=== PATIENT | female | born 1950 | race Caucasian/White ===

== ENCOUNTER 2017-10-06 20:40 | Emergency (ER) | payer OTHER, MEDICAID ==
[2017-10-06 22:17] LABS: ADD UMIC YES; UR ASCORBIC ACID NEGATIVE (NEGATIVE); UR BACTERIA MANY /HPF (NONE SEEN); UR BILIRUBIN (Dip) NEGATIVE (NEGATIVE); UR BLOOD (Dip) NEGATIVE (NEGATIVE); UR CLARITY SLIGHTLY CLOUDY (CLEAR); UR COLOR YELLOW (YELLOW); UR GLUCOSE (Dip) NEGATIVE (NEGATIVE); UR KETONES (Dip) NEGATIVE (NEGATIVE); UR LEUKOCYTE ESTERASE (Dip) 2+ Leu/ul (NEGATIVE); UR MUCUS FEW /HPF (NONE SEEN); UR NITRITE (Dip) POSITIVE (NEGATIVE); UR RBC 5 /HPF (0-5); UR SPECIFIC GRAVITY (Dip) 1.018 (1.003-1.030); UR SQUAMOUS EPITHELIAL CELL FEW /HPF (FEW); UR TOTAL PROTEIN (Dip) 1+ mg/dl (NEGATIVE); UR UROBILINOGEN (Dip) NEGATIVE (NEGATIVE); UR WBC 24 /HPF (0-5)
[2017-10-06 22:32] LABS: ADD MAN DIFF? NO; BASOPHIL # 0.1 10^3/ul (0.0-0.1); BASOPHILS % 0.6 % (0.0-2.0); EOSINOPHILS # 0.2 10^3/ul (0.0-0.5); EOSINOPHILS % 2.8 % (0.0-7.0); HEMATOCRIT 36.1 % (37.0-47.0); HEMOGLOBIN 11.9 g/dl (12.0-16.0); LYMPHOCYTES # 1.7 10^3/ul (0.8-2.9); LYMPHOCYTES % 20.8 % (15.0-51.0); MEAN CORPUSCULAR HEMOGLOBIN 30.1 pg (29.0-33.0); MEAN CORPUSCULAR VOLUME 91.4 fl (82.0-101.0); MEAN PLATELET VOLUME 10.7 fl (7.4-10.4); MONOCYTE # 0.6 10^3/ul (0.3-0.9); MONOCYTES % 7.4 % (0.0-11.0); NEUTROPHIL # 5.4 10^3/ul (1.6-7.5); NEUTROPHILS % 68.1 % (39.0-77.0); PLATELET COUNT 259 10^3/UL (140-415); RED BLOOD COUNT 3.95 10^6/ul (4.20-5.40); RED CELL DISTRIBUTION WIDTH 12.7 % (11.5-14.5)
[2017-10-06 22:54] LABS: ALANINE AMINOTRANSFERASE 20 IU/L (13-69); ALBUMIN 4.1 g/dl (3.3-4.9); ALBUMIN/GLOBULIN RATIO 1.17; ALKALINE PHOSPHATASE 74 IU/L (42-121); ANION GAP 13 (8-16); ASPARTATE AMINO TRANSFERASE 14 IU/L (15-46); BILIRUBIN,INDIRECT 0.3 mg/dl (0-1.1); BILIRUBIN,TOTAL 0.3 mg/dl (0.2-1.3); BLOOD UREA NITROGEN 26 mg/dl (7-20); CALCIUM 9.5 mg/dl (8.4-10.2); CARBON DIOXIDE 27 mmol/L (21-31); CHLORIDE 104 mmol/L (97-110); CREATININE 0.92 mg/dl (0.44-1.00); GLUCOSE 141 mg/dl (70-220); LIPASE 65 U/L (23-300); POTASSIUM 4.4 mmol/L (3.5-5.1); SODIUM 140 mmol/L (135-144); TOTAL PROTEIN 7.6 g/dl (6.1-8.1)
[2017-10-06 22:55] LABS: MONOTEST Negative (NEG)
[2017-10-06 23:18] LABS: TROPONIN-I < 0.012 ng/ml (0.000-0.120)
== END 2017-10-07 00:23 | disposition left against medical advice (07) ==
LOC: FTE 10-07 00:23
DX: R11.10 Vomiting, unspecified (principal); J02.9 Acute pharyngitis, unspecified; S40.862A Insect bite (nonvenomous) of left upper arm, initial encounter; E11.9 Type 2 diabetes mellitus without complications; R07.9 Chest pain, unspecified; W57.XXXA Bitten or stung by nonvenomous insect and other nonvenomous arthropods, initial encounter; Y92.9 Unspecified place or not applicable
CPT/HCPCS: 36415; 80053; 81001; 82962; 83690; 84484; 85025; 86308; 93005; 99284-25